=== PATIENT | female | born 1985 | race Caucasian/White ===

== ENCOUNTER → 2017-05-22 | Outpatient (CLI) | payer SELFPAY ==
--- NOTE | 2017-05-22 16:44 | RADIOLOGY REPORT (SQ) ---
EXAM DESCRIPTION: U/S [id number] TRNABD 1GES W/ODOP COMPLETED DATE/TIME: 05/22/2017 1:57 pm REASON FOR STUDY: FIRST TRIMESTER SIZE AND DATES Z34.81 ENCOUNTER FOR SUPRVSN OF NORMAL , FIRST TRIM COMPARISON: No previous this TECHNIQUE: Transabdominal static and realtime grayscale images acquired of the pelvis. Additional se lected spectral and color Doppler images recorded. All images stored on PACs. bHCG: None available LIMITATIONS: None. FINDINGS: FETUS: Living intrauterine . EGA: 12 weeks 4 days MIGUEL: 11/30/2017 FHR: 175 beats per minute. SUBCHORIONIC BLEED: No SIZE OF BLEED: Not applicable. UTERUS: No masses. No anomalies. Uterus is 11 x 9 x 11 cm in size. Placenta developing anteriorly. CERVICAL LENGTH: 4.1 cm. Closed. RIGHT ADNEXA: Not visualized due to adnexal bowel gas LEFT ADNEXA: Not visualized due to adnexal bowel gas. FREE FLUID: None. OTHER: No other significant finding. IMPRESSION: LIVING INTRAUTERINE . EGA 12 weeks 4 days, heart rate 175 beats per minute Trimester of : First - 0 to 13 weeks. TECHNICAL DOCUMENTATION: JOB ID: [id number] [employer]- All Rights Reserved
== END ==
LOC: RAD 12:49
PROVIDERS: ATTEND Nurse Practitioner Women's Health
DX: Z34.81 Encounter for supervision of other normal pregnancy, first trimester (principal)
CPT/HCPCS: 76801

== ENCOUNTER 2017-06-26 12:36 | Emergency (ER) | payer MEDICAID ==
[2017-06-26 12:46] VITALS: BP 142/77
--- NOTE | 2017-06-26 12:48 | ER Document Report ---
HPI - HPI Patient complains to provider of: left sided sore throat Onset: Yesterday Onset/Duration: Gradual Pain Level: 3 Context: 32 yo female c/o left sided sore throat since yesterday with white spots on tonsil, also some lymph nodes on the left. Achy, low grade fever. No abdominal pain or vaginal bleeding. 17 weeks . Associated Symptoms: None Exacerbated by: Denies Relieved by: Denies - ROS ROS below otherwise negative: Yes Systems Reviewed and Negative: Yes All other systems reviewed and negative - REPRODUCTIVE LMP: 17 weeks Reproductive: DENIES: : Past Medical History - General Information source: Patient - Social History Smoking Status: Never Smoker Frequency of alcohol use: None Drug Abuse: None Lives with: Spouse/Significant other Family History: Reviewed & Not Pertinent - Medical History Medical History: Negative Past Surgical History: Reports: Hx Section - Immunizations Hx Diphtheria, Pertussis, Tetanus Vaccination: No - Contraindicated with high BP Hx Pneumococcal Vaccination: 06/06/12 Vertical Provider Document - CONSTITUTIONAL Agree With Documented VS: Yes Exam Limitations: No Limitations - INFECTION CONTROL TRAVEL OUTSIDE OF THE [place] IN LAST 30 DAYS: No - HEENT HEENT: Normal ENT Exam, Pharyngeal Erythema - exudate left tonsil-mild - NECK Neck: Supple, Lymphadenopathy-Right. negative: Lymphadenopathy-Left - RESPIRATORY Respiratory: Breath Sounds Normal, No Respiratory Distress O2 Sat by Pulse Oximetry: 100 - CARDIOVASCULAR Cardiovascular: Regular Rate, Regular Rhythm - GI/ABDOMEN Gastrointestinal: Abdomen Soft, Abdomen Non-Tender - MUSCULOSKELETAL/EXTREMETIES Musculoskeletal/Extremeties: MAEW - NEURO Level of Consciousness: Awake, Alert - DERM Integumentary: Warm, Dry Course - Re-evaluation Re-evalutation: 06/26/17 13:45 fht 161 - Vital Signs Vital signs: Temp Pulse Resp BP Pulse Ox 98.3 F 104 H 16 142/77 H 100 06/26/17 12:44 06/26/17 12:44 06/26/17 12:44 06/26/17 12:44 06/26/17 12:44 Discharge - Discharge Clinical Impression: Sore throat Qualifiers: Weeks of gestation: 17 weeks Qualified Code(s): Z3A.17 - 17 weeks gestation of Condition: Good Disposition: HOME, SELF-CARE Instructions: Acetaminophen, Penicillin V K ([facility]), Sore Throat ([facility]) Additional Instructions: plenty of fluids penicillin for left tonsillitis to er if symptoms worsen Prescriptions: Penicillin V Potassium [Penicillin Vk 500 mg Tablet] 500 mg PO TID #30 tablet Forms: Return to Work Referrals: BIRD GARRETT MD [Primary Care Provider] - Follow up as needed
== END 2017-06-26 14:10 | disposition home or self-care (01) ==
LOC: ER 12:36
DX: J02.9 Acute pharyngitis, unspecified (principal); R50.9 Fever, unspecified; Z3A.17 17 weeks gestation of pregnancy
CPT/HCPCS: 99282

== ENCOUNTER → 2017-07-25 | Outpatient (CLI) | payer MEDICAID ==
--- NOTE | 2017-07-25 14:53 | RADIOLOGY REPORT (SQ) ---
EXAM DESCRIPTION: U/S OB 14+ TRNABD 1GES W/O DOP COMPLETED DATE/TIME: 07/25/2017 2:36 pm REASON FOR STUDY: ENCOUNTER FOR SUPERVISION OF THER NORMAL , SECOND TRIMESTER Z34.92 ENCNT R FOR SUPRVSN OF NORMAL PREG, UNSP, SECOND TRIME COMPARISON: None. TECHNIQUE: Static and Dynamic grayscale imaging performed of gravid uterus using transabdominal appr oach. Additional selected color Doppler and spectral images recorded. All stored on PACS. LIMITATIONS: None. FINDINGS: EGA: 21 weeks 2 days MIGUEL: 12/03/2017 EFW: 403 grams PERCENTILE: Not calculated. LILLY: 6.6 PLACENTA: Anterior. GRADE: I PRESENTATION: Cephalic. ANATOMY: HEART RATE: 157 beats per minute. FOUR CHAMBER HEART: Visualized. THREE VESSEL CORD: Yes. CORD INSERTION: Visualized. KIDNEYS AND BLADDER: Visualized. Appear normal. STOMACH: Visualized. Appears normal. SPINE: Normal as visualized. BRAIN AND LATERAL VENTRICLES: Visualized. Appear normal. OTHER: No other significant finding. MATERNAL ADNEXA: Maternal ovaries not visualized. CERVICAL LENGTH: 4.1 cm Closed. OTHER: No other significant finding. IMPRESSION: LIVING INTRAUTERINE . ESTIMATED GESTATIONAL AGE 21 weeks 2 days. NO VISUALIZED ANOMALIES. Trimester of : Second trimester - 13 weeks 1 day to 27 weeks 6 days. TECHNICAL DOCUMENTATION: JOB ID: [id number] [employer]- All Rights Reserved Reading location - IP/workstation name: [email or web address]
== END ==
LOC: RAD 13:18
PROVIDERS: ATTEND Nurse Practitioner Women's Health
DX: Z34.92 Encounter for supervision of normal pregnancy, unspecified, second trimester (principal)
CPT/HCPCS: 76805

== ENCOUNTER 2017-11-08 16:06 | Outpatient (CLI) | payer MEDICAID ==
[2017-11-08 16:57] LABS: ABSOLUTE LYMPHOCYTES (AUTO) 2.1 10^3/uL (0.5-4.7); ABSOLUTE MONOCYTES (AUTO) 0.5 10^3/uL (0.1-1.4); ABSOLUTE NEUT (AUTO) 7.4 10^3/uL (1.7-8.2); BASOPHILS % (AUTO) 0.2 % (0-2); EOSINOPHILS % (AUTO) 0.4 % (0-6); HEMATOCRIT 34.5 % (36.0-47.0); LYMPHOCYTES % (AUTO) 20.6 % (13-45); MEAN CORPUSCULAR HEMOGLOBIN 29.8 pg (27.0-33.4); MEAN CORPUSCULAR HGB CONC 34.9 g/dL (32.0-36.0); MEAN CORPUSCULAR VOLUME 85 fl (80-97); PLATELET COUNT 219 10^3/uL (150-450); RED BLOOD COUNT 4.04 10^6/uL (3.72-5.28); RED CELL DISTRIBUTION WIDTH 14.9 % (11.5-14.0); SEGMENTED NEUTROPHILS % (AUTO) 73.8 % (42-78); TOTAL CELLS COUNTED % (AUTO) 100 %
[2017-11-08 17:05] LABS: APPEARANCE,URINE SLIGHTLY-CLOUDY; BILIRUBIN,URINE NEGATIVE (NEGATIVE); COLOR,URINE YELLOW; GLUCOSE, URINE NEGATIVE (NEGATIVE); KETONES,URINE NEGATIVE (NEGATIVE); LEUKOCYTE ESTERASE,URINE NEGATIVE (NEGATIVE); NITRITE,URINE NEGATIVE (NEGATIVE); PROTEIN,URINE 100 mg/dL (NEGATIVE); URINE SPECIFIC GRAVITY 1.016; UROBILINOGEN,URINE NEGATIVE mg/dL (<2.0)
[2017-11-08 17:11] LABS: ALANINE AMINOTRANSFERASE 25 U/L (9-52); ALBUMIN 3.1 g/dL (3.5-5.0); ALKALINE PHOSPHATASE 130 U/L (38-126); ANION GAP 13 (5-19); ASPARTATE AMINO TRANSFERASE 19 U/L (14-36); BILIRUBIN,DIRECT 0.2 mg/dL (0.0-0.4); BILIRUBIN,TOTAL 0.2 mg/dL (0.2-1.3); BLOOD UREA NITROGEN 7 mg/dL (7-20); CALCIUM 8.1 mg/dL (8.4-10.2); CARBON DIOXIDE 19 mmol/L (22-30); CHLORIDE 110 mmol/L (98-107); GLUCOSE 117 mg/dL (75-110); SODIUM 141.9 mmol/L (137-145); TOTAL PROTEIN 5.7 g/dL (6.3-8.2); URIC ACID 8.1 mg/dL (2.5-6.2)
[2017-11-08 17:21] LABS: URINE AMPHETAMINES SCREEN NEGATIVE; URINE BARBITURATES SCREEN NEGATIVE; URINE BENZODIAZEPINES SCREEN NEGATIVE; URINE COCAINE SCREEN NEGATIVE; URINE METHADONE SCREEN NEGATIVE; URINE PHENCYCLIDINE SCREEN NEGATIVE
[2017-11-08 17:29] LABS: URINE MARIJUANA (THC) SCREEN UNCONFIRMED POSITIVE
[2017-11-08 17:32] LABS: UR PRO/CREAT RATIO RESULT 0.2 mg/mg (0.0-0.2); URINE PROTEIN 35.7 mg/dL (<12)
--- NOTE | 2017-11-08 18:19 | Non Stress Test Report ---
Non Stress Test Datetime Report Generated by CPN: 11/08/2017 18:18 DEMOGRAPHIC EGA NST: 36.6 INDICATION Indication for Study: Other Indication for Study (NST) Other: pih work up MONITORING Monitor Explained: Monitor Explained; Test Explained; Patient Verbalized Understanding Time on Monitor: 11/08/2017 17:15 Time off Monitor: 11/08/2017 18:05 NST Duration: 50 NST INTERVENTIONS NST Interventions: Reposition Patient Physician Notified NST: Dr Villafana BABY A: [id number] BABY A Movement : Present Contraction Frequency : 0 FHR Baseline : 135 Accelerations : 15X15 Decelerations : None Variability : Moderate 6-25bpm NST Review: Meets Criteria for Reactive NST NST Review and Verified By : GINGER Meredith Results: Reactive NST REPORT Report Trigger: Send Report
== END 2017-11-08 18:25 | disposition home or self-care (01) ==
LOC: LC 16:06
PROVIDERS: ATTEND Obstetrics & Gynecology Gynecology
PROC: 4A1HXCZ Monitoring of Products of Conception, Cardiac Rate, External Approach (ICD-10-PCS; principal; 2017-11-08)
DX: O14.93 Unspecified pre-eclampsia, third trimester (principal); Z3A.36 36 weeks gestation of pregnancy
CPT/HCPCS: 59025; 36415; 83615; 84156; 84550; 82570; 85025; 80053; 81001; 80307; G0480 ×2

== ENCOUNTER 2017-11-12 16:20 | Inpatient (IN) | payer MEDICAID ==
[2017-11-12 17:11] LABS: ABSOLUTE EOSINOPHILS # (AUTO) 0.1 10^3/uL (0.0-0.6); ABSOLUTE LYMPHOCYTES (AUTO) 2.1 10^3/uL (0.5-4.7); ABSOLUTE MONOCYTES (AUTO) 0.6 10^3/uL (0.1-1.4); ABSOLUTE NEUT (AUTO) 6.2 10^3/uL (1.7-8.2); BASOPHILS % (AUTO) 0.5 % (0-2); EOSINOPHILS % (AUTO) 0.6 % (0-6); HEMATOCRIT 30.7 % (36.0-47.0); HEMOGLOBIN 10.9 g/dL (12.0-15.5); MEAN CORPUSCULAR HEMOGLOBIN 30.4 pg (27.0-33.4); MEAN CORPUSCULAR HGB CONC 35.5 g/dL (32.0-36.0); MEAN CORPUSCULAR VOLUME 86 fl (80-97); MONOCYTES % (AUTO) 6.8 % (3-13); PLATELET COUNT 205 10^3/uL (150-450); RED BLOOD COUNT 3.59 10^6/uL (3.72-5.28); RED CELL DISTRIBUTION WIDTH 15.1 % (11.5-14.0); SEGMENTED NEUTROPHILS % (AUTO) 69.1 % (42-78); TOTAL CELLS COUNTED % (AUTO) 100 %
[2017-11-12 17:16] LABS: APPEARANCE,URINE CLEAR; BILIRUBIN,URINE NEGATIVE (NEGATIVE); COLOR,URINE YELLOW; GLUCOSE, URINE NEGATIVE (NEGATIVE); KETONES,URINE NEGATIVE (NEGATIVE); LEUKOCYTE ESTERASE,URINE NEGATIVE (NEGATIVE); NITRITE,URINE NEGATIVE (NEGATIVE); PROTEIN,URINE NEGATIVE (NEGATIVE); URINE SPECIFIC GRAVITY 1.006; UROBILINOGEN,URINE NEGATIVE mg/dL (<2.0)
[2017-11-12 17:29] LABS: BLOOD UREA NITROGEN 7 mg/dL (7-20); CALCIUM 8.6 mg/dL (8.4-10.2); CHLORIDE 109 mmol/L (98-107); GLUCOSE 96 mg/dL (75-110); POTASSIUM 3.8 mmol/L (3.6-5.0)
[2017-11-12 17:30] LABS: ALANINE AMINOTRANSFERASE 29 U/L (9-52); ALBUMIN 2.9 g/dL (3.5-5.0); ALKALINE PHOSPHATASE 134 U/L (38-126); ANION GAP 8 (5-19); ASPARTATE AMINO TRANSFERASE 24 U/L (14-36); BILIRUBIN,DIRECT 0.2 mg/dL (0.0-0.4); BILIRUBIN,TOTAL 0.3 mg/dL (0.2-1.3); CARBON DIOXIDE 25 mmol/L (22-30); SODIUM 141.6 mmol/L (137-145); TOTAL PROTEIN 5.6 g/dL (6.3-8.2); URIC ACID 7.6 mg/dL (2.5-6.2)
[2017-11-12 17:37] LABS: URINE AMPHETAMINES SCREEN NEGATIVE; URINE BARBITURATES SCREEN NEGATIVE; URINE BENZODIAZEPINES SCREEN NEGATIVE; URINE COCAINE SCREEN NEGATIVE; URINE MARIJUANA (THC) SCREEN NEGATIVE; URINE METHADONE SCREEN NEGATIVE; URINE PHENCYCLIDINE SCREEN NEGATIVE
[2017-11-12 17:41] LABS: UR PRO/CREAT RATIO RESULT 0.6 mg/mg (0.0-0.2); URINE CREATININE 57.1 mg/dL (16-327); URINE PROTEIN 32.6 mg/dL (<12)
--- NOTE | 2017-11-12 19:16 | Admission Physical ---
Datetime Report Generated by CPN: 11/12/2017 19:15 CURRENT ADMISSION Chief Complaint: Sent from OB Office for Evaluation and Treatment - Please Specify Chief Complaint Other: Elevated blood pressures and elevated 24 hour urine in the office. Indication for Induction: Not Applicable Admit Impression : Term, Intrauterine Admit Plan: Admit to Unit; Observation/Evaluation ALLERGIES Medication Allergies: No Medication Allergies: No Known Drug Allergies (06/26/2017) Latex: No Latex Allergies Food Allergies: no Environmental Allergies: no OBSTETRICAL HISTORY EDC: 11/30/2017 00:00 : 2 Para: 1 Term: 1 : 0 SAB: 0 IAB: 0 Ectopic: 0 Livin Cesareans: 1 VBACs: 0 Multiple Births: 0 Gestational Diabetes: Yes Rh Sensitization: No Incompetent Cervix: No ALLISON: No Infertility: No ART Treatment: No Uterine Anomaly: No IUGR: No Hx Previous C/S: Yes Macrosomia: No Hx Loss/Stillborn: No PIH: No Hx : No Placenta Previa/Abruption: No Depression/PP Depression: Yes PTL/PROM: No Post Hemorrhage: No Current Procedures: Ultrasound SEE RECORDS Alcohol: No Marijuana : Yes Marijuana Frequency: Occasional Previous Treatment: None Marijuana Comments: patient denied but when drug test positive she states used 3 weeks ago Cocaine: No Other Illicit Drugs: No Cigarettes: Former Smoker. [id number] MEDICAL HISTORY Diabetes: Yes Diabetes Type: Gestational Diabetes Blood Transfusion: No Pulmonary Disease (Asthma, TB): No Breast Disease: No Hypertension: No Heel Gummer Surgery: No Heart Disease: No Hosp/Surgery: No Autoimmune Disorder: No Anesthetic Complications: No Kidney Disease: No Abnormal Pap Smear: No Neuro/Epilepsy: No Psychiatric Disorders: Yes Other Medical Diseases: No Hepatitis/Liver Disease: No Significant Family History: No Varicosities/Phlebitis: No Trauma/Violence : No Thyroid Dysfunction: No INFECTIOUS HISTORY Gonorrhea: No Genital Herpes: No Chlamydia: No Tuberculosis: No Syphilis: No Hepatitis: No HIV/AIDS Exposure: No Rash or Viral Illness: No HPV: No PHYSICAL EXAM General: Normal HEENT: Normal Neurologic: Normal Thyroid: Normal Heart: Normal Lungs: Normal Breast: Deferred Back: Normal Abdomen: Normal Genitourinary Exam: Normal Extremities: Normal DTRs: Normal Pelvic Type: Adequate Vital Signs: Reviewed MEMBRANES Pooling: Negative Membranes: Intact FETUS A EGA: 37.3 FHR- Baseline: 140 Variability: Moderate 6-25bpm Accelerations: 15X15 FHR Category: Category I Admit Comment: Admit and plan a repeat c section tomorrow PLANS FOR LABOR AND DELIVERY Labor and Delivery: None Pain Management: Spinal Feeding Preference: Breast Benefit of Breast Feed Discussed: Yes Circumcision: N/A INFORMED CONSENT Signature: with User ID: [email or web address]
[2017-11-12] MEDS ORDERED: NORMAL SALINE 250 ML IV PRN (19:20)
[2017-11-12] MEDS ORDERED: CEFAZOLIN 1 GM/D5W RTU 1 GM/50 ML RTUPB IV PRN (19:31)
[2017-11-12 20:04] LABS: ABSOLUTE BASOPHILS # (AUTO) 0.1 10^3/uL (0.0-0.2); ABSOLUTE EOSINOPHILS # (AUTO) 0.1 10^3/uL (0.0-0.6); ABSOLUTE LYMPHOCYTES (AUTO) 2.8 10^3/uL (0.5-4.7); ABSOLUTE MONOCYTES (AUTO) 0.7 10^3/uL (0.1-1.4); ABSOLUTE NEUT (AUTO) 7.4 10^3/uL (1.7-8.2); BASOPHILS % (AUTO) 0.5 % (0-2); EOSINOPHILS % (AUTO) 0.7 % (0-6); HEMOGLOBIN 11.7 g/dL (12.0-15.5); LYMPHOCYTES % (AUTO) 25.2 % (13-45); MEAN CORPUSCULAR HEMOGLOBIN 29.3 pg (27.0-33.4); MEAN CORPUSCULAR HGB CONC 34.5 g/dL (32.0-36.0); MEAN CORPUSCULAR VOLUME 85 fl (80-97); MONOCYTES % (AUTO) 6.2 % (3-13); PLATELET COUNT 239 10^3/uL (150-450); RED BLOOD COUNT 3.99 10^6/uL (3.72-5.28); RED CELL DISTRIBUTION WIDTH 15.1 % (11.5-14.0); SEGMENTED NEUTROPHILS % (AUTO) 67.4 % (42-78); TOTAL CELLS COUNTED % (AUTO) 100 %; WHITE BLOOD COUNT 11.1 10^3/uL (4.0-10.5)
[2017-11-12 20:50] LABS: AMNISURE (ROM) NEGATIVE (NEGATIVE)
[2017-11-12] MEDS ORDERED: INSULIN NPH (ISOPHANE), HUMAN 100 UNIT/ML 3 ML SUBCUT ONE (22:00)
[2017-11-12] MEDS ORDERED: INSULIN REG, HUMAN 100 UNIT/ML 3 ML VIAL (PYX) SUBCUT ONE (22:00)
[2017-11-12] MEDS ORDERED: INSULIN LISPRO 100 UNIT/ML 3 ML VIAL SUBCUT ONE (22:00)
[2017-11-13] MEDS ORDERED: ZOLPIDEM TARTRATE 5 MG TABLET PO ONE (00:30)
[2017-11-13] MEDS ORDERED: CITRIC ACID/SODIUM CITRATE ORAL SOLN 15 ML UDCUP PO ONE (05:00)
[2017-11-13] MEDS ORDERED: RINGERS SOLUTION,LACTATED 1,000 ML IV PRN (07:00)
[2017-11-13] MEDS ORDERED: RINGERS SOLUTION,LACTATED 1,500 ML IV ONE (07:00)
[2017-11-13] MEDS ORDERED: CEFAZOLIN SODIUM 1 GM in DEXTROSE 5%-WATER 50 ML IV PRN (07:45)
[2017-11-13] MEDS ORDERED: RINGERS SOLUTION,LACTATED 1,000 ML IV ONE (12:00)
[2017-11-13] MEDS ORDERED: MIDAZOLAM 2 MG/2 ML INJ ONE ×3 (12:58→14:36)
[2017-11-13] MEDS ORDERED: OXYTOCIN 10 UNIT/ML VIAL ONE (12:58)
[2017-11-13] MEDS ORDERED: PHENYLEPHRINE HCL INJ/PF 10 MG/1 ML SDV ONE (12:58)
[2017-11-13] MEDS ORDERED: CITRIC ACID/SODIUM CITRATE ORAL SOLN 15 ML UDCUP ONE (12:58)
[2017-11-13] MEDS ORDERED: OXYTOCIN/NORMAL SALINE 20 UNIT/1,000 ML RTUINJ ONE ×2 (12:58→16:48)
[2017-11-13] MEDS ORDERED: ACETAMINOPHEN 1,000 MG/100 ML RTUPB IV ONE (12:58)
[2017-11-13] MEDS ORDERED: BUPIVACAINE HCL/DEX-WATER/PF 15 MG/2 ML AMPULE ONE (12:59)
[2017-11-13] MEDS ORDERED: FENTANYL CITRATE INJ/PF 100 MCG/2 ML AMPUL ONE (14:26)
[2017-11-13] MEDS ORDERED: MORPHINE SULFATE 10 MG/ML INJ ONE ×2 (14:57→15:51)
[2017-11-13] MEDS ORDERED: PROPOFOL INJ 200 MG/20 ML VIAL IV ONE (14:57)
--- NOTE | 2017-11-13 15:17 | Non Stress Test Report ---
Non Stress Test Datetime Report Generated by CPN: 11/13/2017 15:17 DEMOGRAPHIC Test Number: 2 EGA NST: 37.3 INDICATION Indication for Study: Ordered by Provider Indication for Study (NST) Other: Dr. Carvajal MONITORING Monitor Explained: Monitor Explained; Test Explained; Patient Verbalized Understanding Time on Monitor: 11/12/2017 18:11 Time off Monitor: 11/12/2017 19:23 NST Duration: 72 NST INTERVENTIONS NST Interventions: IV Fluids; Reposition Patient BABY A: [id number] BABY A Movement : Present Contraction Frequency : none FHR Baseline : 135 Accelerations : 15X15 Decelerations : None Variability : Moderate 6-25bpm NST Review: Meets Criteria for Reactive NST NST Review and Verified By : SRickey Watsontibabdoul, RNC NST Results: Reactive NST REPORT Report Trigger: Send Report
[2017-11-13] MEDS ORDERED: ACETAMINOPHEN 325 MG TABLET PO PRN (15:25)
[2017-11-13] MEDS ORDERED: PROMETHAZINE HCL INJ 25 MG/1 ML VIAL IV PRN (15:25)
[2017-11-13] MEDS ORDERED: OXYCODONE-ACETAMINOPHEN 5-325 MG TABLET PO PRN (15:25)
[2017-11-13] MEDS ORDERED: MEASLES,MUMPS&RUBELLA VACC/PF 0.5 ML VIAL SUBCUT PRN (15:25)
[2017-11-13] MEDS ORDERED: OXYTOCIN/NORMAL SALINE 20 UNIT/1,000 ML RTUINJ IV PRN (15:25)
[2017-11-13] MEDS ORDERED: DIPH/PERTUSS(ACELL)/TETANUS VAC/PF 0.5 ML SYR (>=10YO) IM PRN (15:25)
[2017-11-13] MEDS ORDERED: ACETAMINOPHEN 1,000 MG/100 ML RTUPB IV PRN (15:25)
--- NOTE | 2017-11-13 15:42 | Brief Operative Note ---
BRIEF OPERATIVE REPORT DATE OF SURGERY: 11/13/17 TIME OF SURGERY: 13:00 PREOPERATIVE DIAGNOSIS: History of section, at 37+3ega, CHTN ith superimposed preE POSTOPERATIVE DIAGNOSIS: TED - incisional hernia. SURGEON: JOSE MILLER 1ST BATCH TANK CONTROLLER: BIRD SAM FINDINGS: large right sided incisional hernia with omentum encased in hernia. Normal bilateral tubes and ovaries. Dr. Sam came in for assistance for hernia. Appreciate his assistance very much. Thin lower uterine segment noted. Vertex presentation, macrosomic infant. Time of 1413. Apgars 8# 5oz (3770g). NATHALY drain placed. IVF 2600ml, UOP 300ml COMPLICATIONS: Unknown incisional hernia found at skin incision ESTIMATED BLOOD LOSS: 1631ml TISSUE REMOVED OR ALTERED: placenta and cord not sent to pathology TECHNICAL PROCEDURE: Repeat section, Repair of incisional hernia
[2017-11-13] MEDS ORDERED: ONDANSETRON HCL INJ/PF 4 MG/2 ML SDV ONE (16:44)
--- NOTE | 2017-11-13 17:25 | OPERATIVE REPORT E ---
Operative Report NAME: LUH DWYER : 1985 AGE: 32Y DATE OF SURGERY: 11/13/2017 ROOM: 214 PREOPERATIVE DIAGNOSIS: TERM INTRAUTERINE . POSTOPERATIVE DIAGNOSIS: TERM INTRAUTERINE WITH MODERATELY LARGE ABDOMINAL WALL HERNIA INVOLVING PREVIOUS PFANNENSTIEL INCISION. OPERATION: 1. Right Pfannenstiel hernia resection, with reduction of omentum. 2. Closure of anterior abdominal wall. SURGEON: BIRD SAM M.D. COUNTER STACKER: Deneen COMPLICATIONS: None. ESTIMATED BLOOD LOSS: Per Dr. Brothers's note. FINDINGS: See below. PROCEDURE: The patient is a 32-year-old female undergoing delivery via spinal anesthesia performed by Dr. Brothers. I was called to assist with the intraoperative findings of a moderately large abdominal wall hernia involving the lateral aspect of the patient's previous Pfannenstiel incision. I arrived at the operating room and scrubbed in. The findings were significant for a reopened Pfannenstiel incision involving the skin and subcutaneous tissue. The very central aspect of the anterior abdominal wall fascia was opened, and extended to the patient's right lateral side, where an abdominal wall hernia was encountered. I now proceeded to dissect the entire hernia sac away from the subcutaneous tissue and lateral abdominal wall fascia. This was a moderately large sac, approximately 10 cm in diameter. I then extended the previously opened abdominal wall opening across midline and to the patient's left side. This enabled us to reduce the contents of the hernia sac, which included incarcerated omentum. The omentum was freed from the anterior abdominal wall and the hernia sac, and the hernia sac debrided and excised off the field and disposed of. The omentum was placed into the free peritoneal space. At this point, Dr. Brothers completed the section and that portion of the procedure was dictated by her. We were now confronted with closure of the abdominal wall. Fortunately, with the conceptus evacuated, and the uterus shrunken down, there was laxity of the anterior abdominal wall with minimal compression. Dr. Brothers closed the rectus sheath including muscle vertically with Vicryl suture. I then closed the intraabdominal wall transversely with running double-stranded #[address] Brothers completed the operation and that portion is dictated separately. DICTATING PHYSICIAN: BIRD SAM M.D. [id number] PHY#: [id number] ID: [id number] JOB#: [id number] ACCT: [id number] cc:BIRD SAM M.D. >
[2017-11-13] MEDS: HYDROMORPHONE HCL INJ/PF 2 MG/ML AMPULE IV PRN ×2 (18:07→21:15)
--- NOTE | 2017-11-13 18:33 | Delivery Summary ---
Del Sum A-C Datetime Report Generated by CPN: 11/13/2017 18:33 DELIVERY PERSONNEL DELIVERY PERSONNEL: [id number] Delivery Doctor:: Suzi Brothers MD Anesthesiologist:: Tomi Flores MD DIRECTOR OF CONVENTION SERVICES:: Malachi Holbrook DIRECTOR OF CONVENTION SERVICES Labor and Delivery Nurse:: Leann Ulrich RN Digital Media Analyst:: ASHLEY Musa Fretted Instrument Repairer:: Dr. Eagle Malhotra Nursery Nurse:: Kimberly Mckinney RN Nursery Nurse:: Kaylah Buchanan Student Observers:: Kayley Mullins RN General Studies Program Chair/CORPORATE SPECIALIST: Kimberly Sanchez CST General Studies Program Chair/CORPORATE SPECIALIST: ST Jennifer Additional Personnel: : Dr Post MATERNAL INFORMATION Delivery Anesthesia: Spinal Medications During Delivery: see anesthesia Medications After Delivery: Pitocin Drip 20 Units/1000ml NSS Maternal Complications: Other Complication Details: Large hernia requiring surgical assistance / repeat c/s for pre eclampsia/ GDM on insulin LABOR SUMMARY EDC: 11/30/2017 00:00 No. Babies in Womb: 1 Attempted: No Labor Anesthesia: None LABOR INFORMATION Reason for Induction: Not Applicable Oxytocin: N/A Group B Beta Strep: unknown Antibiotics # of Doses: 0 Antibiotics Time of Last Dose: 0 Name of Antibiotic Given: 0 Steroids Given: None Reason Steroids Not Administered: Not Applicable MEMBRANES Membranes Rupture Method: Artificial Rupture of Membranes: 11/13/2017 14:12 Length of Rupture (hr): 0.02 Amniotic Fluid Color: Clear Amniotic Fluid Amount: Moderate Amniotic Fluid Odor: Normal STAGES OF LABOR Stage 3 hr: 0 Stage 3 min: 1 CSECTION DELIVERY Primary Indication: Repeat Elective Secondary Indication: pre eclampsia CSection Urgency: Scheduled CSection Incidence: Repeat Labor: N/A Elective: Elective CSection Incision: Lower Uterine Transverse CSection Incision- Other: incision extended for hernia BABY A INFORMATION Delivery Date/Time: 11/13/2017 14:13 Method of Delivery: Born in Route : No : N/A Forceps: N/A Vacuum Extraction: N/A Shoulder Dystocia : No PRESENTATION/POSITION BABY A Presentation: Cephalic Cephalic Presentation: Vertex Vertex Position: Left Occipital Anterior Breech Presentation: N/A PLACENTA INFORMATION BABY A Placenta Delivery Time : 11/13/2017 14:14 Placenta Method of Delivery: Manual Removal Placenta Status: Delivered SCORES BABY A Heart Rate 1 min: >100 bpm Resp Effort 1 min: Good Cry Reflex Irritability 1 min: Cough or Sneeze or Pulls Away Muscle Tone 1 min: Active Motion Color 1 min: Body [place], Extremities Blue SCORE 1 MIN: 9 Heart Rate 5 min: >100 bpm Resp Effort 5 min: Good Cry Reflex Irritability 5 min: Cough or Sneeze or Pulls Away Muscle Tone 5 min: Active Motion Color 5 min: Body [place], Extremities Blue SCORE 5 MIN: 9 INFANT INFORMATION BABY A Gestational Age at Delivery: 37.4 Gestational Status: Early Term- 37- 38.6 Weeks Outcome : Liveborn Condition : Stable Infant Sex: Female IDENTIFICATION BABY A Infant Verification Date/Time: 11/13/2017 14:12 ID Band Number: [id number] Mother's Name Verified: Yes RN Verifying : D Milagro RN/E Serg RN WEIGHT/LENGTH BABY A Birthweight (gm): 3770 Weight (lb): 8 Weight (oz): 5 Length (in): 18.75 Infant Length (cm): 47.63 CORD INFORMATION BABY A No. Cord Vessels: 3 Nuchal Cord : N/A Cord Blood Taken: Yes-For Storage (Mom's Blood type +) Suction: Mouth; Nose ASSESSMENT BABY A Skin to Skin: No BABY B INFORMATION : N/A
--- NOTE | 2017-11-13 18:34 | Delivery Summary ---
Del Sum A-C Datetime Report Generated by CPN: 11/13/2017 18:34 DELIVERY PERSONNEL DELIVERY PERSONNEL: [id number] Delivery Doctor:: Suzi Brothers MD Anesthesiologist:: Tomi Flores MD DIGITAL COMPUTER OPERATOR:: Malachi Holbrook DIGITAL COMPUTER OPERATOR Labor and Delivery Nurse:: Leann Ulrich RN Paid Intern:: ASHLEY Musa Silica Spray Mixer:: Dr. Eagle Malhotra Nursery Nurse:: Kimberly Mckinney RN Nursery Nurse:: Kaylah Buchanan Student Observers:: Kayley Mullins RN Pharmacist'S Aide/MARKETING PROPOSAL COORDINATOR: Kimberly Sanchez CST Pharmacist'S Aide/MARKETING PROPOSAL COORDINATOR: ST Jennifer Additional Personnel: : Dr Post MATERNAL INFORMATION Delivery Anesthesia: Spinal Medications During Delivery: see anesthesia Medications After Delivery: Pitocin Drip 20 Units/1000ml NSS Maternal Complications: Other Complication Details: Large hernia requiring surgical assistance / repeat c/s for pre eclampsia/ GDM on insulin LABOR SUMMARY EDC: 11/30/2017 00:00 No. Babies in Womb: 1 Attempted: No Labor Anesthesia: None LABOR INFORMATION Reason for Induction: Not Applicable Oxytocin: N/A Group B Beta Strep: unknown Antibiotics # of Doses: 0 Antibiotics Time of Last Dose: 0 Name of Antibiotic Given: 0 Steroids Given: None Reason Steroids Not Administered: Not Applicable MEMBRANES Membranes Rupture Method: Artificial Rupture of Membranes: 11/13/2017 14:12 Length of Rupture (hr): 0.02 Amniotic Fluid Color: Clear Amniotic Fluid Amount: Moderate Amniotic Fluid Odor: Normal STAGES OF LABOR Stage 3 hr: 0 Stage 3 min: 1 CSECTION DELIVERY Primary Indication: Repeat Elective Secondary Indication: pre eclampsia CSection Urgency: Scheduled CSection Incidence: Repeat Labor: N/A Elective: Elective CSection Incision: Lower Uterine Transverse CSection Incision- Other: incision extended for hernia BABY A INFORMATION Delivery Date/Time: 11/13/2017 14:13 Method of Delivery: Born in Route : No : N/A Forceps: N/A Vacuum Extraction: N/A Shoulder Dystocia : No PRESENTATION/POSITION BABY A Presentation: Cephalic Cephalic Presentation: Vertex Vertex Position: Left Occipital Anterior Breech Presentation: N/A PLACENTA INFORMATION BABY A Placenta Delivery Time : 11/13/2017 14:14 Placenta Method of Delivery: Manual Removal Placenta Status: Delivered SCORES BABY A Heart Rate 1 min: >100 bpm Resp Effort 1 min: Good Cry Reflex Irritability 1 min: Cough or Sneeze or Pulls Away Muscle Tone 1 min: Active Motion Color 1 min: Body [place], Extremities Blue SCORE 1 MIN: 9 Heart Rate 5 min: >100 bpm Resp Effort 5 min: Good Cry Reflex Irritability 5 min: Cough or Sneeze or Pulls Away Muscle Tone 5 min: Active Motion Color 5 min: Body [place]oss, Extremities Blue SCORE 5 MIN: 9 INFANT INFORMATION BABY A Gestational Age at Delivery: 37.4 Gestational Status: Early Term- 37- 38.6 Weeks Outcome : Liveborn Condition : Stable Infant Sex: Female IDENTIFICATION BABY A Infant Verification Date/Time: 11/13/2017 14:12 ID Band Number: [id number] Mother's Name Verified: Yes RN Verifying : D Milagro RN/E Serg RN WEIGHT/LENGTH BABY A Birthweight (gm): 3770 Weight (lb): 8 Weight (oz): 5 Length (in): 18.75 Infant Length (cm): 47.63 CORD INFORMATION BABY A No. Cord Vessels: 3 Nuchal Cord : N/A Cord Blood Taken: Yes-For Storage (Mom's Blood type +) Suction: Mouth; Nose ASSESSMENT BABY A Skin to Skin: No BABY B INFORMATION : N/A
[2017-11-13] MEDS: DOCUSATE SODIUM 100 MG CAPSULE PO SCH (19:38)
[2017-11-13] MEDS: OXYCODONE-ACETAMINOPHEN 5-325 MG TABLET PO PRN (20:16)
[2017-11-13] MEDS: FAMOTIDINE 20 MG TABLET PO SCH (22:44)
[2017-11-14] MEDS: OXYCODONE-ACETAMINOPHEN 5-325 MG TABLET PO PRN ×5 (00:31→20:55)
[2017-11-14] MEDS: HYDROMORPHONE HCL INJ/PF 2 MG/ML AMPULE IV PRN ×4 (03:01→23:48)
--- NOTE | 2017-11-14 06:50 | Operative Report ---
Operative Report DATE OF SURGERY: 11/13/17 PREOPERATIVE DIAGNOSIS: History of section, at 37+3ega, CHTN ith superimposed preE POSTOPERATIVE DIAGNOSIS: TED - incisional hernia. OPERATION: Repeat section, Repair of incisional hernia SURGEON: JOSE MILLER 1ST REQUIREMENTS ANALYST: BIRD NAZARIO ANESTHESIA: Spinal TISSUE REMOVED OR ALTERED: placenta and cord not sent to pathology COMPLICATIONS: None - incisional hernia unkown prior to incision ESTIMATED BLOOD LOSS: 1631ml INTRAOPERATIVE FINDINGS: large right sided incisional hernia with omentum encased in hernia. Normal bilateral tubes and ovaries. Dr. Nazario came in for assistance for hernia. Appreciate his assistance very much. Thin lower uterine segment noted. Vertex presentation, macrosomic infant. Time of 1413. Apgars 8#5oz (3770g). NATHALY drain placed. IVF 2600ml, UOP 300ml PROCEDURE: Anesthesia: Spinal Anesthesia provider: [Brijesh Flores MD, Malachi Holbrook] Urine output: [300ml] IV fluids: [2600ml] Indications: [32yo at 37+3ega with complicated by CHTN presented from the office on 11/12 with severe range BPs and 24 hr UTP greater than 400. Now with CHTN and superimposed preE. She also has A2GDM on NPH/Reg insulin. She has a history of a prior section and desires repeat. The risks, benefits, alternatives were reviewed and she desires to proceed with Repeat C/S and declines BTL.] Procedure: The patient was taken to the operating room where spinal anesthesia was obtained and found to be adequate. She was then prepped and draped in the normal sterile fashion and placed in the dorsal supine position with a leftward tilt. A Pfannenstiel skin incision was then made and immediately evident was a large right sided incisional hernia. Dr. Nazario was called and her came to help with hernia - see his operative report for that description. After isolating hernia and freeing omentum from the hernia sac the pfannensteil incision was carried through to the underlying layers of the fascia with the scalpel. The fascia was incised in the midline and the incision extended laterally with the Pendleton scissors. The superior aspect of the fascial incision was then grasped with Vicky clamps elevated and the underlying rectus muscles dissected off [bluntly]. Attention was then turned to the inferior aspect of the fascial incision which in a similar fashion was grasped, tented up with Rocío clamps, and the rectus muscles dissected off [bluntly]. The rectus muscles were then in the midline and the peritoneum at the amount identified and entered [bluntly]. The peritoneal incision was then extended superiorly and inferiorly with good visualization of the bladder. The bladder blade was inserted and the vesicouterine peritoneum identified grasped with Lebanese pickups and entered sharply with the Metzenbaum scissors. This incision was then extended laterally with the Metzenbaum scissors and a bladder flap created digitally. The bladder blade was then reinserted and the lower uterine segment incised in a transverse fashion with the scalpel. The uterine incision was then extended bluntly. The bladder blade was removed and the infant's head was delivered from cephalic presentation atraumatically. The nose and mouth were suctioned and the cord doubly clamped and cut. And the infant was handed off to waiting pediatricians. The placenta was then delivered spontaneously and the uterus exteriorized and cleared of all clots and debris. The uterine incision was then repaired with 1- 0 Vicryl in a running locked fashion. A second layer of the same suture was used to obtain hemostasis via imbrication of the initial layer. The bladder flap was then repaired with 3-0 chromic in a running fashion. The uterus was returned to the patient's abdomen and Interceed was placed overlying the uterine incision to prevent adhesions. The gutters were cleared of all clots and debris. All operative sites were noted to be hemostatic. The rectus muscles were reapproximated with PDS running suture. The fascia was reapproximated with PDS in a running fashion from each lateral edge to the midline. NATHALY drain was placed and port exit to left of incision. The skin was closed with 3-0 Monocryl in a running subcuticular fashion with overlying steri strips for additional dressing as well as wound closure. The patient tolerated the procedure well. Sponge lap needle and instrument counts are correct times 2. 2 g of Ancef were given prior to skin incision. The patient was taken to the recovery area awake and in stable condition.
[2017-11-14 06:52] LABS: HEMATOCRIT 26.5 % (36.0-47.0); MEAN CORPUSCULAR HEMOGLOBIN 29.9 pg (27.0-33.4); MEAN CORPUSCULAR HGB CONC 34.7 g/dL (32.0-36.0); MEAN CORPUSCULAR VOLUME 86 fl (80-97); PLATELET COUNT 146 10^3/uL (150-450); RED BLOOD COUNT 3.08 10^6/uL (3.72-5.28); RED CELL DISTRIBUTION WIDTH 15.6 % (11.5-14.0); WHITE BLOOD COUNT 10.5 10^3/uL (4.0-10.5)
[2017-11-14 06:54] LABS: HEMOGLOBIN 9.2 g/dL (12.0-15.5)
[2017-11-14] MEDS: FAMOTIDINE 20 MG TABLET PO SCH ×2 (10:01→22:02)
[2017-11-14] MEDS: DOCUSATE SODIUM 100 MG CAPSULE PO SCH ×2 (10:01→18:40)
[2017-11-14] MEDS: PRENATAL VITAMIN W DHA CAPSULE PO SCH (10:01)
--- NOTE | 2017-11-14 13:14 | PDOC PROGRESS REPORT ---
Subjective-OB Progress Note for:: 11/14/17 Subjective: s/p repeat c/s pt ambulating well abdomen distended reports burping tympany noted incision dry and intact ff@u-1 mild lochia reports moderate pain/ encouraged pt to ambulate/ consulted RN for pain management Physical Exam (OB) Vital Signs: Temp Pulse Resp BP Pulse Ox 98.5 F 96 18 150/84 H 97 11/14/17 12:00 11/14/17 12:00 11/14/17 12:00 11/14/17 12:00 11/14/17 12:00 Intake & Output 11/13/17 11/14/17 11/15/17 06:59 06:59 06:59 Intake Total 1900 Output Total 885 180 Balance 1015 -180 Weight 129 kg - PIH/Pre-Eclampsia Headache: Absent Epigastric Pain: No Visual Changes: No - Dressing Removed: No - pressure dressing Incision: Dressing Closure Type: pressure - Lochia Lochia Amount: Scant < 10 ml Lochia Color: Rubra/Red - Abdomen Description: Tender, Soft Hernia Present: No Fundal Description: Firm, Midline Fundal Height: u/u - u/2 Objective-Diagnostic Laboratory: 11/14/17 06:22 11/12/17 17:00 11/14/17 06:22 WBC 10.5 RBC 3.08 L Hgb 9.2 L D Hct 26.5 L MCV 86 MCH 29.9 MCHC 34.7 RDW 15.6 H Plt Count 146 L
[2017-11-14] MEDS: SIMETHICONE 80 MG TAB.CHEW PO PRN ×2 (13:39→18:40)
[2017-11-15] MEDS: OXYCODONE-ACETAMINOPHEN 5-325 MG TABLET PO PRN ×4 (04:13→22:28)
[2017-11-15] MEDS: SIMETHICONE 80 MG TAB.CHEW PO PRN (09:26)
[2017-11-15] MEDS: FAMOTIDINE 20 MG TABLET PO SCH ×2 (09:26→21:05)
[2017-11-15] MEDS: PRENATAL VITAMIN W DHA CAPSULE PO SCH (09:27)
[2017-11-15] MEDS: DOCUSATE SODIUM 100 MG CAPSULE PO SCH ×2 (09:31→18:36)
--- NOTE | 2017-11-15 09:31 | PDOC PROGRESS REPORT ---
Subjective-OB Progress Note for:: 11/15/17 Physical Exam (OB) Vital Signs: Temp Pulse Resp BP Pulse Ox 99.6 F 88 17 162/79 H 97 11/15/17 03:00 11/15/17 07:29 11/15/17 07:29 11/15/17 07:29 11/15/17 07:29 Intake & Output 11/14/17 11/15/17 11/16/17 06:59 06:59 06:59 Intake Total 1900 Output Total 885 320 Balance 1015 -320 - PIH/Pre-Eclampsia DTR's: 2 + Clonus: Negative Headache: Absent Epigastric Pain: No Visual Changes: No - Dressing Removed: No - pressure dressing on Incision: Dressing Closure Type: pressure - Lochia Lochia Amount: Small 10-25 ml Lochia Color: Rubra/Red - Abdomen Description: Tender, Soft, Round Hernia Present: No Bowel Sounds: Normoactive Flatus Presence: Absent Stool: No Fundal Description: Firm, Midline Fundal Height: u/u - u/2 Objective-Diagnostic Laboratory: 11/14/17 06:22 11/12/17 17:00
[2017-11-15] MEDS: NIFEDIPINE 30 MG TAB.ER.24 PO SCH (10:44)
[2017-11-16] MEDS: OXYCODONE-ACETAMINOPHEN 5-325 MG TABLET PO PRN (07:50)
[2017-11-16 08:07] VITALS: BP 151/83
[2017-11-16] MEDS: NIFEDIPINE 30 MG TAB.ER.24 PO SCH (10:00)
[2017-11-16] MEDS: PRENATAL VITAMIN W DHA CAPSULE PO SCH (10:00)
[2017-11-16] MEDS: DOCUSATE SODIUM 100 MG CAPSULE PO SCH (10:01)
[2017-11-16] MEDS: FAMOTIDINE 20 MG TABLET PO SCH (10:01)
--- NOTE | 2017-11-16 10:41 | PDOC PROGRESS REPORT ---
Subjective-OB Progress Note for:: 11/16/17 Subjective: Ready to go home. Comfortable with care of J-P drain. Physical Exam (OB) Vital Signs: Temp Pulse Resp BP Pulse Ox 97.5 F 94 18 151/83 H 99 11/16/17 08:03 11/16/17 08:03 11/16/17 08:03 11/16/17 08:03 11/16/17 08:03 Intake & Output 11/15/17 11/16/17 11/17/17 06:59 06:59 06:59 Intake Total 600 Output Total 420 160 25 Balance -420 440 -25 - PIH/Pre-Eclampsia DTR's: 1 + Clonus: Negative Headache: Absent Epigastric Pain: No Visual Changes: No - Dressing Removed: Yes - open to air Incision: Well Approximated Closure Type: Steri-Strips - Lochia Lochia Amount: Scant < 10 ml Lochia Color: Rubra/Red - Abdomen Description: Tender, Soft, Round Hernia Present: No Bowel Sounds: Normoactive Flatus Presence: Absent Stool: No Fundal Description: Firm, Midline Fundal Height: u/u - u/2 Abdomen Note: Small amount drainage in J-P drain. States has passed no gas rectally-will stay until sure she is passing gas. Objective-Diagnostic Laboratory: 11/14/17 06:22 11/12/17 17:00
--- NOTE | 2017-11-16 11:07 | PDOC DISCHARGE SUMMARY ---
Final Diagnosis Discharge Date: 11/16/17 - Final Diagnosis (1) Anemia Is this a current diagnosis for this admission?: Yes (2) GDM (gestational diabetes mellitus) Is this a current diagnosis for this admission?: Yes (3) History of depression Is this a current diagnosis for this admission?: Yes (4) delivery due to maternal disorder Is this a current diagnosis for this admission?: Yes (5) Incisional hernia Is this a current diagnosis for this admission?: Yes (6) Pre-eclampsia Is this a current diagnosis for this admission?: Yes Discharge Data - Discharge Medication Prescriptions: Oxycodone HCl/Acetaminophen [Percocet 5-325 mg Tablet] 1 tab PO Q4HP PRN #20 tablet PRN Reason: Docusate Sodium [Colace 100 mg Capsule] 100 mg PO BID #30 capsule Ferrous Sulfate 325 mg PO BID #60 tablet. Ibuprofen 800 mg PO Q8 PRN #30 tablet PRN Reason: Nifedipine [Procardia XL 30 mg Tablet] 30 mg PO DAILY #30 tab.er.24 Home Medications: Pnv W-O Ca No5/Fe Fumarate/FA [-U Capsule] 1 cap PO DAILY 06/06/12 Insulin NPH Human Isophane [Humulin N] 14 units SQ BID 11/12/17 Insulin Regular, Human [Novolin R (Reg) Insulin 100 unit/mL] 8 units SQ BID Docusate Sodium [Colace 100 mg Capsule] 100 mg PO BID #30 capsule 11/16/17 Ferrous Sulfate 325 mg PO BID #60 tablet. 11/16/17 Ibuprofen 800 mg PO Q8 PRN #30 tablet 11/16/17 Nifedipine [Procardia XL 30 mg Tablet] 30 mg PO DAILY #30 tab.er.24 11/16/17 Oxycodone HCl/Acetaminophen [Percocet 5-325 mg Tablet] 1 tab PO Q4HP PRN #20 tablet 11/16/17 Gestational Age: 37.4 wks Reason(s) for Admission: Induction of Labor, PIH, Gestional Diabetes Procedures: Ultrasound Intrapartum Procedure(s): : Low Cervical, Transverse - Data Baby 1 Female at 1 minute: 9 at 5 minutes: 9 Weight: 3.77 kg Home with Mother: Yes Complications: No - Diagnosis Test Laboratory: Temp Pulse Resp BP Pulse Ox 97.5 F 94 18 151/83 H 99 11/16/17 08:03 11/16/17 08:03 11/16/17 08:03 11/16/17 08:03 11/16/17 08:03 11/12/17 11/12/17 11/12/17 16:28 17:00 19:53 RBC 3.59 L 3.99 Hgb 10.9 L 11.7 L Hct 30.7 L 34.0 L Urine Opiates Screen NEGATIVE 11/14/17 06:22 RBC 3.08 L Hgb 9.2 L D Hct 26.5 L Urine Opiates Screen - Discharge information/Instructions Discharge Activity: Activity As Tolerated, Balance Activity w/Rest, No Lifting Over 10 Pounds, No Lifting/Push/Pulling, Non-Ambulatory Child, Pelvic Rest, Slowly Increase Activity, No tub bath Discharge Diet: Regular Disposition: HOME, SELF-CARE Follow up with: [facility] in: 1, Weeks
== END 2017-11-16 17:00 | disposition home or self-care (01) | DRG 766 ==
LOC: LC 16:20 → EEVIPCON 20:04 → 2S 20:04
PROVIDERS: ADMIT Obstetrics & Gynecology; ATTEND Obstetrics & Gynecology
PROC: 4A1HXCZ Monitoring of Products of Conception, Cardiac Rate, External Approach (ICD-10-PCS; 2017-11-12)
PROC: 10D00Z1 Extraction of Products of Conception, Low, Open Approach (ICD-10-PCS; principal; 2017-11-13)
PROC: 0WQF0ZZ Repair Abdominal Wall, Open Approach (ICD-10-PCS; 2017-11-13)
PROC: 0DNU0ZZ Release Omentum, Open Approach (ICD-10-PCS; 2017-11-13)
DX: O24.424 Gestational diabetes mellitus in childbirth, insulin controlled (principal); O99.02 Anemia complicating childbirth; D64.9 Anemia, unspecified; K43.2 Incisional hernia without obstruction or gangrene; O11.4 Pre-existing hypertension with pre-eclampsia, complicating childbirth; O26.893 Other specified pregnancy related conditions, third trimester; O99.344 Other mental disorders complicating childbirth; F32.9 Major depressive disorder, single episode, unspecified; O34.211 Maternal care for low transverse scar from previous cesarean delivery; Z23 Encounter for immunization; Z87.891 Personal history of nicotine dependence; Z37.0 Single live birth
CPT/HCPCS: 1961; 36415; 59025; 80053; 80307; 81001; 82570; 82962; 83615; 84112; 84156; 84550; 85025; 85027; 86850; 86900; 86901; 86920; 90715; 94799; C1765; J0131; J1170; J1815; J2250; J2270; J2370; J2405; J2590; J2704; J3010; J3490; J7120

== ENCOUNTER 2017-11-18 11:26 | Emergency (ER) | payer MEDICAID ==
[2017-11-18 11:35] VITALS: BP 176/89
--- NOTE | 2017-11-18 12:11 | ER Document Report ---
ED Medical Screen (RME) - General Chief Complaint: Shortness Of Breath Stated Complaint: DIFFICULTY BREATHING Time Seen by Provider: 11/18/17 11:59 TRAVEL OUTSIDE OF THE [place] IN LAST 30 DAYS: No - HPI Notes: 11/18/17 12:11 Recent and hernia repair returns pill stating heaviness in chest and shortness of breath. - Related Data Allergies/Adverse Reactions: No Known Drug Allergies Allergy (Unknown, Verified 06/26/17 12:41) Past Medical History - Social History Chew tobacco use (# tins/day): No Frequency of alcohol use: None Drug Abuse: None - Past Medical History Cardiac Medical History: Reports: Hx Hypertension Denies: Hx Heart Murmur Endocrine Medical History: Denies: Hx Hyperthyroidism, Hx Hypothyroidism Renal/ Medical History: Denies: Hx Peritoneal Dialysis GI Medical History: Reports: Hx Gastroesophageal Reflux Disease. Denies: Hx Hiatal Hernia, Hx Ulcer Past Surgical History: Reports: Hx Section - c-sectionx2, hernia repair - Immunizations Hx Diphtheria, Pertussis, Tetanus Vaccination: No - Contraindicated with high BP History of Influenza Vaccine for 01/2017 - 06/2017 Season: Yes Review of Systems - Review of Systems Constitutional: Other - sob Physical Exam - Vital signs Vitals: Temp Pulse Resp BP Pulse Ox 98.4 F 75 20 176/89 H 99 11/18/17 11:33 11/18/17 11:33 11/18/17 11:33 11/18/17 11:33 11/18/17 11:33 - Respiratory Respiratory status: No respiratory distress Chest status: Nontender Breath sounds: Normal Chest palpation: Normal Course - Vital Signs Vital signs: Temp Pulse Resp BP Pulse Ox 98.4 F 75 20 176/89 H 99 11/18/17 11:33 11/18/17 11:33 11/18/17 11:33 11/18/17 11:33 11/18/17 11:33 Doctor's Discharge - Discharge Referrals: ERVIN MEJÍA MD [Primary Care Provider] - Follow up as needed
--- NOTE | 2017-11-18 12:32 | RADIOLOGY REPORT (SQ) ---
EXAM DESCRIPTION: CHEST 2 VIEWS COMPLETED DATE/TIME: 11/18/2017 12:23 pm REASON FOR STUDY: sob COMPARISON: None. EXAM PARAMETERS: NUMBER OF VIEWS: two views TECHNIQUE: Digital Frontal and Lateral radiographic views of the chest acquired. RADIATION DOSE: NA LIMITATIONS: none FINDINGS: LUNGS AND PLEURA: No opacities, masses or pneumothorax. No pleural effusion. MEDIASTINUM AND HILAR STRUCTURES: No masses or contour abnormalities. HEART AND VASCULAR STRUCTURES: Heart normal size. No evidence for failure. BONES: No acute findings. HARDWARE: None in the chest. OTHER: No other significant finding. IMPRESSION: NO ACUTE RADIOGRAPHIC FINDING IN THE CHEST. TECHNICAL DOCUMENTATION: JOB ID: [id number] [employer]- All Rights Reserved Reading location - IP/workstation name: [email or web address]
[2017-11-18 14:21] LABS: ABSOLUTE EOSINOPHILS # (AUTO) 0.2 10^3/uL (0.0-0.6); ABSOLUTE LYMPHOCYTES (AUTO) 1.2 10^3/uL (0.5-4.7); ABSOLUTE MONOCYTES (AUTO) 0.6 10^3/uL (0.1-1.4); ABSOLUTE NEUT (AUTO) 5.6 10^3/uL (1.7-8.2); BASOPHILS % (AUTO) 0.4 % (0-2); EOSINOPHILS % (AUTO) 2.1 % (0-6); HEMATOCRIT 25.7 % (36.0-47.0); HEMOGLOBIN 8.9 g/dL (12.0-15.5); LYMPHOCYTES % (AUTO) 15.3 % (13-45); MEAN CORPUSCULAR HEMOGLOBIN 29.8 pg (27.0-33.4); MEAN CORPUSCULAR HGB CONC 34.5 g/dL (32.0-36.0); MEAN CORPUSCULAR VOLUME 86 fl (80-97); PLATELET COUNT 233 10^3/uL (150-450); RED BLOOD COUNT 2.97 10^6/uL (3.72-5.28); RED CELL DISTRIBUTION WIDTH 15.4 % (11.5-14.0); SEGMENTED NEUTROPHILS % (AUTO) 74.2 % (42-78); TOTAL CELLS COUNTED % (AUTO) 100 %; WHITE BLOOD COUNT 7.6 10^3/uL (4.0-10.5)
[2017-11-18 14:43] LABS: ANION GAP 9 (5-19); BLOOD UREA NITROGEN 10 mg/dL (7-20); CALCIUM 8.3 mg/dL (8.4-10.2); CARBON DIOXIDE 24 mmol/L (22-30); CHLORIDE 110 mmol/L (98-107); GLUCOSE 89 mg/dL (75-110); POTASSIUM 4.1 mmol/L (3.6-5.0); SODIUM 143.2 mmol/L (137-145)
[2017-11-18 15:04] LABS: BILIRUBIN,DIRECT 0.3 mg/dL (0.0-0.4); BILIRUBIN,TOTAL 0.6 mg/dL (0.2-1.3)
--- NOTE | 2017-11-18 17:27 | RADIOLOGY REPORT (SQ) ---
EXAM DESCRIPTION: CTA CHEST COMPLETED DATE/TIME: 11/18/2017 5:15 pm REASON FOR STUDY: cp/sob COMPARISON: None. TECHNIQUE: CT scan of the chest performed using helical scanning technique with dynamic intravenous contrast injection. Images reviewed with lung, soft tissue and bone windows. Reconstructed coronal and sagittal MPR images reviewed. Additional 3 dimensional post-processing performed to develop Maximal Intensity Projection images (NE P). All images stored on PACS. All CT scanners at this facility use dose modulation, iterative reconstruction, and/or weight based d osing when appropriate to reduce radiation dose to as low as reasonably achievable (ALARA). [facility]: Dose Right [facility]: CareDose [facility]: Dose Right [facility]: Teradose 4D [facility]: Language123 CONTRAST TYPE AND DOSE: contrast/concentration: Isovue 370.00 mg/ml; Total Contrast Delivered: 84.0 ml; Total Saline Delivered: 70.0 ml Contrast bolus adequate for pulmonary arteries and aorta. RENAL FUNCTION: BUN 10 creatinine 0.62. RADIATION DOSE: CT Rad equipment meets quality standard of care and radiation dose reduction techniq ues were employed. CTDIvol: 33.0 - 33.1 mGy. DLP: 1208 mGy-cm. . LIMITATIONS: None. FINDINGS: LUNGS AND PLEURA: Small pleural effusions. Minimal basilar atelectasis. AORTA AND GREAT VESSELS: No aneurysm. No dissection. HEART: No pericardial effusion. No significant coronary artery calcifications. PULMONARY ARTERIES: No emboli visualized in the main pulmonary arteries or the segmental branches. HILAR AND MEDIASTINAL STRUCTURES: No identified masses or abnormal nodes. HARDWARE: None in the chest. UPPER ABDOMEN: No significant findings. Limited exam. THYROID AND OTHER SOFT TISSUES: No masses. No adenopathy. BONES: No acute or significant finding. 3D MIPS: Confirm above findings. OTHER: No other significant finding. IMPRESSION: NORMAL CTA OF THE CHEST. NO PULMONARY EMBOLI. SMALL PLEURAL EFFUSIONS. MINIMAL BASILAR ATELECTASIS. COMMENT: Quality ID # [id number]: Final reports with documentation of one or more dose reduction techniques (e.g., Automated exposure control, adjustment of the mA and/or kV according to patient size, use of iterative reconstruction technique) TECHNICAL DOCUMENTATION: JOB ID: [id number] [employer]- All Rights Reserved Reading location - IP/workstation name: [email or web address]
--- NOTE | 2017-11-18 17:50 | ER Document Report ---
ED General - General Chief Complaint: Shortness Of Breath Stated Complaint: DIFFICULTY BREATHING Time Seen by Provider: 11/18/17 11:59 Mode of Arrival: Ambulatory Information source: Patient Notes: This is a 32-year-old female status post 5 days ago who presents to the emergency room with some chest heaviness with shortness of breath over the last day. She does report swelling in the arms and legs. Patient denies smoking cigarettes. She denies any family history of blood clots. She does report that her blood pressure was elevated in the last trimester which is why she had the . She is currently on nifedipine orally. TRAVEL OUTSIDE OF THE [place] IN LAST 30 DAYS: No - HPI Onset: Yesterday Onset/Duration: Gradual Quality of pain: Dull, Pressure Severity: Moderate Pain Level: 2 Associated symptoms: Chest pain, Shortness of breath. denies: Fever Exacerbated by: Denies Relieved by: Denies Similar symptoms previously: No Recently seen / treated by doctor: Yes - Related Data Allergies/Adverse Reactions: No Known Drug Allergies Allergy (Unknown, Verified 06/26/17 12:41) Past Medical History - General Information source: Patient - Social History Smoking Status: Former Smoker Cigarette use (# per day): No Chew tobacco use (# tins/day): No Frequency of alcohol use: None Drug Abuse: None Lives with: Family Family History: Reviewed & Not Pertinent Patient has suicidal ideation: No Patient has homicidal ideation: No - Past Medical History Cardiac Medical History: Reports: Hx Hypertension Denies: Hx Heart Murmur Endocrine Medical History: Denies: Hx Hyperthyroidism, Hx Hypothyroidism Renal/ Medical History: Denies: Hx Peritoneal Dialysis GI Medical History: Reports: Hx Gastroesophageal Reflux Disease. Denies: Hx Hiatal Hernia, Hx Ulcer Past Surgical History: Reports: Hx Section - c-sectionx2, hernia repair - Immunizations Hx Diphtheria, Pertussis, Tetanus Vaccination: No - Contraindicated with high BP Hx Pneumococcal Vaccination: 06/06/12 Review of Systems - Review of Systems Constitutional: denies: Chills, Fever EENT: No symptoms reported Cardiovascular: See HPI Respiratory: See HPI Gastrointestinal: No symptoms reported Genitourinary: No symptoms reported Female Genitourinary: No symptoms reported Musculoskeletal: No symptoms reported Skin: No symptoms reported Hematologic/Lymphatic: No symptoms reported Neurological/Psychological: No symptoms reported Physical Exam - Vital signs Vitals: Temp Pulse Resp BP Pulse Ox 98.4 F 75 20 176/89 H 99 11/18/17 11:33 11/18/17 11:33 11/18/17 11:33 11/18/17 11:33 11/18/17 11:33 Notes: Physical exam: GENERAL: 32-year-old female, alert and oriented 3, no acute distress HEAD: Atraumatic, normocephalic. EYES: Pupils equal round and reactive to light, extraocular movements intact, sclera anicteric, conjunctiva are normal. ENT: TMs normal, nares patent, oropharynx clear without exudates. Moist mucous membranes. NECK: Normal range of motion, supple without obvious mass or JVD. LUNGS: Breath sounds clear to auscultation bilaterally and equal. No wheezes rales or rhonchi. HEART: Regular rate and rhythm without murmurs, rubs or gallops. ABDOMEN: Soft, normoactive bowel sounds. No tenderness to palpation. No guarding, no rebound. No masses appreciated. EXTREMITIES: He does have bilateral lower extremity edema. She does appear to have some edema in her upper extremities as well. NEUROLOGICAL: Cranial nerves II through XII grossly intact. Normal speech, moving all extremities. PSYCH: Normal mood, normal affect. SKIN: Warm, Dry, normal turgor, no rashes or lesions noted. Course - Re-evaluation Re-evalutation: 11/18/17 17:49 Note: I did discuss the day of the with patient she states she did get a fair amount of IV fluids. CTA shows no evidence of pulmonary emboli. I do think her symptoms are probably from fluid overload and she still is somewhat hypertensive. I discussed case with Dr. Carvajal is covering for Dr. Hsu and we will send the patient up to labor and delivery for evaluation, probable diuretics. - Vital Signs Vital signs: Temp Pulse Resp BP Pulse Ox 98.4 F 75 19 176/89 H 97 11/18/17 11:33 11/18/17 11:33 11/18/17 17:15 11/18/17 11:33 11/18/17 17:15 - Laboratory Result Diagrams: 11/18/17 13:55 11/18/17 13:55 Laboratory results interpreted by me: 11/18/17 11/18/17 13:55 13:55 RBC 2.97 L Hgb 8.9 L Hct 25.7 L RDW 15.4 H Chloride 110 H Calcium 8.3 L - Diagnostic Test Radiology reviewed: Image reviewed, Reports reviewed - PA shows no pulmonary emboli. There does appear to be some fluid overload with small bilateral pleural effusions. - EKG Interpretation by Wi Rate: Normal Rhythm: NSR - EKG shows normal sinus rhythm with a ventricular rate of 67, no acute ST-T wave changes Discharge - Discharge Clinical Impression: Dyspnea, Hypertension, 5 days Condition: Stable Disposition: OTHER Additional Instructions: Plan is to go directly to the labor and delivery for evaluation by Dr. Carvajal. Referrals: ERVIN MJEÍA MD [ACTIVE STAFF] - Follow up as needed
--- NOTE | 2017-11-18 22:06 | EKG REPORT ---
SEVERITY:- NORMAL ECG - SINUS RHYTHM : Confirmed by: Marisa Dunn MD 18-Nov-2017 22:05:46
== END 2017-11-18 18:10 | disposition other institution (70) ==
LOC: ER 11:26
DX: O14.95 Unspecified pre-eclampsia, complicating the puerperium (principal); Z79.899 Other long term (current) drug therapy; O99.53 Diseases of the respiratory system complicating the puerperium; J90 Pleural effusion, not elsewhere classified; O90.89 Other complications of the puerperium, not elsewhere classified; R06.02 Shortness of breath; Z98.890 Other specified postprocedural states; Z87.891 Personal history of nicotine dependence
CPT/HCPCS: 36415; 71046; 71275; 80048; 82247; 82248; 84450; 84460; 84484; 85025; 86850; 86900; 86901; 93005; 93010; 99285

== ENCOUNTER 2017-11-18 18:14 | Observation (INO) | payer MEDICAID ==
[~2017-11-18 18:14] MED LIST: FUROSEMIDE INJ/PF 20 MG/2 ML SDV IV ONE
[2017-11-18] MEDS ORDERED: FUROSEMIDE 20 MG TABLET PO ONE (18:20)
[2017-11-18] MEDS ORDERED: FUROSEMIDE INJ/PF 40 MG/4 ML SDV ONE (18:36)
[2017-11-18] MEDS ORDERED: FUROSEMIDE INJ/PF 20 MG/2 ML SDV IV ONE (18:38)
[2017-11-18 18:47] LABS: APPEARANCE,URINE CLEAR; BILIRUBIN,URINE NEGATIVE (NEGATIVE); COLOR,URINE YELLOW; GLUCOSE, URINE NEGATIVE (NEGATIVE); KETONES,URINE NEGATIVE (NEGATIVE); LEUKOCYTE ESTERASE,URINE NEGATIVE (NEGATIVE); NITRITE,URINE NEGATIVE (NEGATIVE); PROTEIN,URINE NEGATIVE (NEGATIVE); URINE SPECIFIC GRAVITY 1.033; UROBILINOGEN,URINE NEGATIVE mg/dL (<2.0)
[2017-11-18 19:03] LABS: URINE AMPHETAMINES SCREEN NEGATIVE; URINE BARBITURATES SCREEN NEGATIVE; URINE BENZODIAZEPINES SCREEN NEGATIVE; URINE COCAINE SCREEN NEGATIVE; URINE METHADONE SCREEN NEGATIVE; URINE PHENCYCLIDINE SCREEN NEGATIVE
[2017-11-18 19:07] LABS: UR PRO/CREAT RATIO RESULT 0.2 mg/mg (0.0-0.2); URINE CREATININE 75.8 mg/dL (16-327); URINE PROTEIN 15.6 mg/dL (<12)
[2017-11-18 19:13] LABS: URINE MARIJUANA (THC) SCREEN UNCONFIRMED POSITIVE
[2017-11-18] MEDS ORDERED: HYDRALAZINE HCL INJ/PF 20 MG/1 ML SDV IV ONE ×2 (19:44→20:16)
[2017-11-18] MEDS ORDERED: HYDRALAZINE HCL INJ/PF 20 MG/1 ML SDV ONE ×2 (19:46→20:16)
[2017-11-18 20:12] LABS: URIC ACID 6.5 mg/dL (2.5-6.2)
--- NOTE | 2017-11-18 21:01 | Admission Physical ---
Datetime Report Generated by CPN: 11/18/2017 21:00 CURRENT ADMISSION Chief Complaint: Other Chief Complaint Other: post hypertension Indication for Induction: Not Applicable Admit Impression : Observation/Evaluation Admit Plan: Admit to Unit; Observation/Evaluation ALLERGIES Medication Allergies: No Medication Allergies: No Known Drug Allergies (06/26/2017) Latex: No Latex Allergies Food Allergies: no Environmental Allergies: no OBSTETRICAL HISTORY EDC: 11/30/2017 00:00 : 2 Para: 1 Term: 1 : 0 SAB: 0 IAB: 0 Ectopic: 0 Livin Cesareans: 1 VBACs: 0 Multiple Births: 0 Gestational Diabetes: Yes Rh Sensitization: No Incompetent Cervix: No ALLISON: No Infertility: No ART Treatment: No Uterine Anomaly: No IUGR: No Hx Previous C/S: Yes Macrosomia: No Hx Loss/Stillborn: No PIH: No Hx : No Placenta Previa/Abruption: No Depression/PP Depression: Yes PTL/PROM: No Post Hemorrhage: No Current Procedures: Ultrasound Obstetrical History Comments: G1- G2- current SEE RECORDS Alcohol: No Marijuana : Yes Marijuana Frequency: Occasional Previous Treatment: None Marijuana Comments: patient denied but when drug test positive she states used 3 weeks ago Cocaine: No Other Illicit Drugs: No Cigarettes: Former Smoker. [id number] MEDICAL HISTORY Diabetes: Yes Diabetes Type: Gestational Diabetes Blood Transfusion: No Pulmonary Disease (Asthma, TB): No Breast Disease: No Hypertension: No Certified Medical Aide Surgery: No Heart Disease: No Hosp/Surgery: No Autoimmune Disorder: No Anesthetic Complications: No Kidney Disease: No Abnormal Pap Smear: No Neuro/Epilepsy: No Psychiatric Disorders: Yes Other Medical Diseases: No Hepatitis/Liver Disease: No Significant Family History: No Varicosities/Phlebitis: No Trauma/Violence : No Thyroid Dysfunction: No INFECTIOUS HISTORY Gonorrhea: No Genital Herpes: No Chlamydia: No Tuberculosis: No Syphilis: No Hepatitis: No HIV/AIDS Exposure: No Rash or Viral Illness: No HPV: No PHYSICAL EXAM General: Normal HEENT: Normal Neurologic: Normal Thyroid: Normal Heart: Normal Lungs: Normal Breast: Deferred Back: Normal Abdomen: Normal Genitourinary Exam: Deferred Extremities: Normal DTRs: Normal Pelvic Type: Adequate Vital Signs: Reviewed MEMBRANES Pooling: Negative Membranes: Intact FETUS A EGA: 38.2 FHR- Baseline: 140 Variability: Moderate 6-25bpm Accelerations: 15X15 FHR Category: Category I Admit Comment: Post htn. Admit for observation, procardia and lasix. PLANS FOR LABOR AND DELIVERY Labor and Delivery: None Pain Management: Spinal Feeding Preference: Breast Benefit of Breast Feed Discussed: Yes Circumcision: N/A INFORMED CONSENT Signature: with User ID: [email or web address]
[2017-11-18] MEDS ORDERED: ACETAMINOPHEN 325 MG TABLET PO ONE (21:03)
[2017-11-18] MEDS ORDERED: ACETAMINOPHEN 325 MG TABLET ONE (21:06)
[2017-11-18] MEDS: NIFEDIPINE 30 MG TAB.ER.24 PO SCH (21:10)
[2017-11-18] MEDS ORDERED: NIFEDIPINE 30 MG TAB.ER.24 PO SCH (22:00)
[2017-11-19] MEDS ORDERED: HYDRALAZINE HCL INJ/PF 20 MG/1 ML SDV IV PRN (00:10)
[2017-11-19] MEDS ORDERED: HYDRALAZINE HCL INJ/PF 20 MG/1 ML SDV IV ONE (00:15)
[2017-11-19] MEDS: OXYCODONE-ACETAMINOPHEN 5-325 MG TABLET PO PRN ×3 (01:10→09:25)
[2017-11-19] MEDS ORDERED: FUROSEMIDE INJ/PF 20 MG/2 ML SDV IV SCH (06:00)
[2017-11-19] MEDS: NIFEDIPINE 30 MG TAB.ER.24 PO SCH (09:27)
--- NOTE | 2017-11-19 09:54 | PDOC PROGRESS REPORT ---
Subjective-OB Progress Note for:: 11/19/17 Subjective: Feeling alot better, voiding large amount and edema is subsiding, ready to go home, baby in room with pt, scant bleeding, eating well, continues to have a headache Physical Exam (OB) Vital Signs: Temp Pulse Resp BP Pulse Ox 98.1 F 95 22 H 152/87 H 97 11/19/17 09:07 11/19/17 09:07 11/19/17 09:07 11/19/17 09:07 11/19/17 09:07 Intake & Output 11/18/17 11/19/17 11/20/17 06:59 06:59 06:59 Intake Total 500 Balance 500 Weight 125.5 kg Objective-Diagnostic Laboratory: 11/18/17 11/18/17 13:55 18:19 Uric Acid 6.5 H Urine Color YELLOW Urine Appearance CLEAR Urine pH 7.0 Ur Specific [place] 1.033 Urine Protein NEGATIVE Urine Glucose (UA) NEGATIVE Urine Ketones NEGATIVE Urine Blood MODERATE H Urine Nitrite NEGATIVE Ur Leukocyte Esterase NEGATIVE Urine WBC (Auto) 1 Urine RBC (Auto) 1 Assessment and Plan(PN) - Assessment and Plan (1) Anemia Qualifiers: Anemia type: iron deficiency Is this a current diagnosis for this admission?: Yes (2) Pre-eclampsia Qualifiers: Trimester: third trimester Qualified Code(s): O14.93 - Unspecified pre- eclampsia, third trimester Is this a current diagnosis for this admission?: Yes - Time Spent with Patient Time with patient: Less than 15 minutes Smoking Education Provided: Over 3 minutes Medications reviewed and adjusted accordingly: Yes - Disposition Anticipated Discharge: Home Within: within 24 hours
--- NOTE | 2017-11-19 09:57 | PDOC DISCHARGE SUMMARY ---
Final Diagnosis Discharge Date: 11/19/17 - Final Diagnosis (1) Anemia Is this a current diagnosis for this admission?: Yes (2) Pre-eclampsia Is this a current diagnosis for this admission?: Yes Discharge Data - Discharge Medication Home Medications: Docusate Sodium [Colace 100 mg Capsule] 100 mg PO BID #30 capsule 11/16/17 Ferrous Sulfate 325 mg PO BID #60 tablet. 11/16/17 Ibuprofen 800 mg PO Q8 PRN #30 tablet 11/16/17 Nifedipine [Procardia XL 30 mg Tablet] 30 mg PO DAILY #30 tab.er.24 11/16/17 Oxycodone HCl/Acetaminophen [Percocet 5-325 mg Tablet] 1 tab PO Q4HP PRN #20 tablet 11/16/17 Nifedipine [Procardia XL 30 mg Tablet] 30 mg PO Q12 tab.er.24 11/19/17 - Diagnosis Test Laboratory: Temp Pulse Resp BP Pulse Ox 98.1 F 95 22 H 152/87 H 97 11/19/17 09:07 11/19/17 09:07 11/19/17 09:07 11/19/17 09:07 11/19/17 09:07 11/18/17 18:19 Urine Opiates Screen NEGATIVE - Discharge information/Instructions Discharge Activity: Activity As Tolerated, No Lifting Over 10 Pounds, No Lifting /Push/Pulling, Pelvic Rest Discharge Diet: As Tolerated, Regular Disposition: HOME, SELF-CARE Follow up with: [facility] in: 3, Days - make appt for Saturday,
[2017-11-19] MEDS ORDERED: DOCUSATE SODIUM 100 MG CAPSULE PO SCH (10:00)
[2017-11-19 13:59] VITALS: BP 152/79
== END 2017-11-19 15:42 | disposition home or self-care (01) ==
LOC: LC 18:14 → LR 21:04 → 2S 22:25
PROVIDERS: ADMIT Obstetrics & Gynecology; ATTEND Obstetrics & Gynecology
DX: O14.95 Unspecified pre-eclampsia, complicating the puerperium (principal); O90.81 Anemia of the puerperium; D50.9 Iron deficiency anemia, unspecified; Z86.32 Personal history of gestational diabetes
CPT/HCPCS: 36415; 83615; 84156; 84550; 82570; 81001; 80307; G0378 ×2; G0379; G0480 ×2; J3490 ×4; J1940 ×2; J0360 ×2; 80349

== ENCOUNTER 2018-03-14 08:57 | Emergency (ER) | payer SELFPAY ==
[2018-03-14 09:06] VITALS: BP 159/83
[2018-03-14] MEDS ORDERED: PENICILLIN G BENZATHINE 1.2 MILLION UNIT/2 ML DISP.SYRIN IM ONE (09:40)
[2018-03-14] MEDS ORDERED: DEXAMETHASONE 4 MG TABLET PO ONE (09:40)
--- NOTE | 2018-03-14 09:47 | ER Document Report ---
ED General - General Chief Complaint: Sore Throat Stated Complaint: SORE THROAT Time Seen by Provider: 03/14/18 09:14 TRAVEL OUTSIDE OF THE [place] IN LAST 30 DAYS: No - HPI Patient complains to provider of: Sore throat Notes: Patient coming in for approximately 1 week of sore throat. Patient states her had strep throat approximately 1 month ago. Patient denies any fever chills nausea vomiting diarrhea. Patient states feeling unwell. Patient otherwise resting comfortably upon my evaluation in no obvious distress. - Related Data Allergies/Adverse Reactions: No Known Drug Allergies Allergy (Unknown, Verified 06/26/17 12:41) Past Medical History - Social History Smoking Status: Current Every Day Smoker Chew tobacco use (# tins/day): No Frequency of alcohol use: Rare Drug Abuse: Marijuana Family History: Reviewed & Not Pertinent Patient has suicidal ideation: No Patient has homicidal ideation: No - Past Medical History Cardiac Medical History: Reports: Hx Hypertension Denies: Hx Heart Murmur Endocrine Medical History: Denies: Hx Hyperthyroidism, Hx Hypothyroidism Renal/ Medical History: Denies: Hx Peritoneal Dialysis GI Medical History: Reports: Hx Gastroesophageal Reflux Disease. Denies: Hx Hiatal Hernia, Hx Ulcer Past Surgical History: Reports: Hx Section - c-sectionx2, hernia repair - Immunizations Hx Diphtheria, Pertussis, Tetanus Vaccination: No - Contraindicated with high BP Hx Pneumococcal Vaccination: 06/06/12 Review of Systems - Review of Systems Constitutional: No symptoms reported EENT: Throat pain Cardiovascular: No symptoms reported Respiratory: No symptoms reported Gastrointestinal: No symptoms reported Genitourinary: No symptoms reported Female Genitourinary: No symptoms reported Musculoskeletal: No symptoms reported Skin: No symptoms reported Hematologic/Lymphatic: No symptoms reported Neurological/Psychological: No symptoms reported -: Yes All other systems reviewed and negative Physical Exam - Vital signs Vitals: Temp Pulse Resp BP Pulse Ox 98.4 F 93 16 159/83 H 95 03/14/18 09:05 03/14/18 09:05 03/14/18 09:05 03/14/18 09:05 03/14/18 09:05 Interpretation: Normal - General General appearance: Appears well, Alert - HEENT Head: Normocephalic, Atraumatic Eyes: Normal Conjunctiva: Normal Cornea: Normal Extraocular movements intact: Yes Pupils: PERRL Ears: Normal External canal: Normal Tympanic membrane: Normal Sinus: Normal Nasal: Normal Pharynx: Exudate Neck: Normal - Respiratory Respiratory status: No respiratory distress Chest status: Nontender Breath sounds: Normal Chest palpation: Normal - Cardiovascular Rhythm: Regular Heart sounds: Normal auscultation Murmur: No - Abdominal Inspection: Normal Distension: No distension Bowel sounds: Normal Tenderness: Nontender Organomegaly: No organomegaly - Back Back: Normal, Nontender - Extremities General upper extremity: Normal inspection, Nontender, Normal color, Normal ROM , Normal temperature General lower extremity: Normal inspection, Nontender, Normal color, Normal ROM , Normal temperature, Normal weight bearing. No: Last's sign - Neurological Neuro grossly intact: Yes Cognition: Normal Orientation: AAOx4 [place] Coma Scale Eye Opening: Spontaneous [place] Coma Scale Verbal: Oriented [place] Coma Scale Motor: Obeys Commands [place] Coma Scale Total: 15 Speech: Normal Motor strength normal: LUE, RUE, LLE, RLE Sensory: Normal - Psychological Associated symptoms: Normal affect, Normal mood - Skin Skin Temperature: Warm Skin Moisture: Dry Skin Color: Normal Course - Re-evaluation Re-evalutation: 03/14/18 18:22 Patient strep test was positive. Examination is not revealing signs of a tonsillar abscess or any other critical pathology. Given dose of Decadron and a shot of Bicillin. Patient was discharged home follow-up with her PCP as needed - Vital Signs Vital signs: Temp Pulse Resp BP Pulse Ox 98.4 F 93 16 159/83 H 95 03/14/18 09:05 03/14/18 09:05 03/14/18 09:05 03/14/18 09:05 03/14/18 09:05 Discharge - Discharge Clinical Impression: Strep pharyngitis Condition: Good Disposition: HOME, SELF-CARE Instructions: Strep Throat ([facility]) Additional Instructions: Your swab today came back positive for strep infection. We will treat you with a single shot of Bicillin you would not need any more antibiotics. You are also given a dose of Decadron in the steroid to help out with the inflammation in the posterior pharynx or the back of the throat. I would highly recommend to continue with Tylenol and Motrin. I will give you a prescription for a dose of Diflucan please hold this if in 7 days you are having vaginal discharge consistent with yeast infection he may take it at that time. Return to ER for any other concerning issues. Please avoid any contacts drinking after other people coughing other people kissing of the people. Follow-up with your primary care physician and 1-2 weeks Prescriptions: Ibuprofen [Motrin 600 mg Tablet] 600 mg PO Q8HP PRN #21 tablet PRN Reason: Fluconazole [Diflucan 100 mg Tablet] 200 mg PO ONCE PRN 1 Days tablet PRN Reason: Forms: Return to Work
== END 2018-03-14 10:00 | disposition home or self-care (01) ==
LOC: ER 08:57
DX: J02.0 Streptococcal pharyngitis (principal); I10 Essential (primary) hypertension; F17.200 Nicotine dependence, unspecified, uncomplicated; F12.10 Cannabis abuse, uncomplicated; Z20.818 Contact with and (suspected) exposure to other bacterial communicable diseases
CPT/HCPCS: 99283; 96372; 87880; J0561